=== PATIENT | male | born 1990 | race Caucasian/White ===

== ENCOUNTER 2020-10-11 08:08 | Emergency (ER) | payer OTHER, BC ==
[2020-10-11 08:41] VITALS: BP 116/70; PULSE 65; TEMP 98.4; BMI 28.0
== END 2020-10-11 09:14 | disposition home or self-care (01) ==
LOC: FER 08:08
PROC: 2W3CX1Z Immobilization of Right Lower Arm using Splint (ICD-10-PCS; principal; 2020-10-11)
DX: S69.91XA Unspecified injury of right wrist, hand and finger(s), initial encounter (principal)
CPT/HCPCS: 73130-TC-RT-FY; 99283-25

== ENCOUNTER 2021-10-18 15:49 | Emergency (ER) | payer OTHER ==
[2021-10-18 16:15] VITALS: BP 110/69; PULSE 59; TEMP 99.2; BMI 28.0
== END 2021-10-18 17:44 | disposition home or self-care (01) ==
LOC: FER 15:49
DX: S60.932A Unspecified superficial injury of left thumb, initial encounter (principal); X50.0XXA Overexertion from strenuous movement or load, initial encounter
CPT/HCPCS: 73130-TC-LT-FY; 99283-25

== ENCOUNTER 2022-06-19 08:42 | Emergency (ER) | payer OTHER ==
[2022-06-19 08:56] VITALS: BP 116/65; PULSE 49; RESP 16; TEMP 97.1; BMI 27.9
[2022-06-19] MEDS ORDERED: LIDOCAINE 5% TOPICAL PATCH TP ONE (09:03)
[2022-06-19] MEDS ORDERED: ACETAMINOPHEN 325 MG TABLET (FP) PO ONE (09:03)
[2022-06-19] MEDS ORDERED: ACETAMINOPHEN 500 MG TABLET (FP) ONE (09:04)
[2022-06-19] MEDS ORDERED: LIDOCAINE 5% TOPICAL PATCH ONE (09:04)
== END 2022-06-19 09:25 | disposition home or self-care (01) ==
LOC: FER 08:42
DX: S33.5XXA Sprain of ligaments of lumbar spine, initial encounter (principal); X50.0XXA Overexertion from strenuous movement or load, initial encounter
CPT/HCPCS: 99283-25

== ENCOUNTER 2023-11-12 10:43 | Emergency (ER) | payer BC ==
[2023-11-12 10:51] VITALS: BP 113/67; PULSE 84; RESP 15; TEMP 98.1; BMI 27.9
[2023-11-12] MEDS ORDERED: ACETAMINOPHEN INJECTION 100 ML IVPB ONE (11:29)
[2023-11-12] MEDS: SODIUM CHLORIDE 1,000 ML IV STA (11:40)
[2023-11-12] MEDS: ACETAMINOPHEN 1000 MG/100 ML BAG IVPB ONE (11:45)
[2023-11-12 11:56] LABS: HEMOGLOBIN 16.3 G/dL (11.7-16.9); MCHC 33.3 g/dl (32.0-35.9); MEAN CELL VOLUME 87.2 fl (80-96); MEAN PLT VOLUME 7.5 fl (7.5-11.1); PLATELET COUNT 146.1 10^3/uL (134-434); RBC 5.62 10^6/uL (4.00-5.60); RDW 13.8 % (11.9-15.9); WHITE BLOOD COUNT 4.1 10^3/uL (4.0-10.8)
[2023-11-12 12:17] LABS: EPITHELIAL CELLS 0-5 /hpf
[2023-11-12 13:06] LABS: ALBUMIN 4.7 g/dl (3.4-5.0); BILIRUBIN,TOTAL 0.6 mg/dl (0.2-1); CALCIUM 9.5 mg/dl (8.5-10.1); CREATININE 1.1 mg/dl (0.6-1.3)
[2023-11-12 13:25] LABS: PLATELET ESTIMATE ADEQUATE
== END 2023-11-12 13:37 | disposition home or self-care (01) ==
LOC: FER 10:43
PROC: 3E033NZ Introduction of Analgesics, Hypnotics, Sedatives into Peripheral Vein, Percutaneous Approach (ICD-10-PCS; principal; 2023-11-12)
PROC: 3E0337Z Introduction of Electrolytic and Water Balance Substance into Peripheral Vein, Percutaneous Approach (ICD-10-PCS; 2023-11-12)
DX: R50.9 Fever, unspecified (principal); M79.10 Myalgia, unspecified site; R63.0 Anorexia; R51.9 Headache, unspecified; R61 Generalized hyperhidrosis; Z20.822 Contact with and (suspected) exposure to COVID-19
CPT/HCPCS: 0241U-QW; 36415; 71046-TC-FY; 80053; 81003; 81015; 85027; 87086; 99284-25; J0131